=== PATIENT | male | born 2000 | race Caucasian/White ===

== ENCOUNTER 2021-03-01 16:40 | Emergency (ER) | payer BC, SELFPAY ==
[2021-03-01] VITALS (11 sets, daily range): BP systolic 122–155; BP diastolic 73–103; PULSE 100–122; RESP 19–38; TEMP 36.8–36.9; O2SAT 83–98
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
[2021-03-01] MEDS: SODIUM CHLORIDE 0.9% IV 1,000 ML 999 ML IV CONT (17:13)
[2021-03-01] MEDS: methylPREDNISolone SOD SUCC 125 MG VIAL IV PUSH (17:27)
[2021-03-01 17:30] LABS: Basophils Absolute Auto 0.12 K/mm3 (0.00-0.10); Basophils Percent Auto 0.8 % (0.0-1.0); Eosinophils Absolute Auto 0.47 K/mm3 (0.02-0.50); Hematocrit 48.1 % (40.0-54.0); Hemoglobin 16.3 g/dL (14.0-18.0); Immature Granulocyte Absolute 0.12 K/mm3 (0.00-0.00); Immature Granulocyte Percent A 0.8 % (0.0-0.0); Lymphocytes Absolute Auto 3.93 K/mm3 (1.10-4.50); Lymphocytes Percent Auto 24.8 % (18.0-42.0); Mean Corpuscular HGB Conc 33.9 g/dL (32.0-36.0); Mean Corpuscular Hemoglobin 31.3 pg (27.0-31.0); Mean Corpuscular Volume 92.3 fL (78.0-102.0); Mean Platelet Volume 9.6 fl (8.7-11.0); Monocytes Absolute Auto 0.73 K/mm3 (0.10-0.90); Monocytes Percent Auto 4.6 % (2.0-11.0); Neutrophils Absolute Auto 10.5 K/mm3 (1.7-7.2); Platelet Count Result 370 K/mm3 (150-420); Red Blood Count 5.21 M/mm3 (4.70-6.10); Red Cell Distribution Width 11.8 % (11.6-14.4); White Blood Count 15.9 K/mm3 (4.8-10.8)
[2021-03-01 17:34] LABS: Base Excess ABG -4.8 mmol/L (0-2); HCO3 ABG 21.7 mmol/L (23-29); Modified Allen's Test Pass; Oxygen Content ABG 17.9 %vol (16.0-22.0); Oxygen Saturation ABG 90.3 % (95-97); Oxyhemoglobin 87.2 % (94-100); PCO2 ABG 45.2 mmHg (35-45); PO2 ABG 60.1 mmHg (80-90); Site Drawn RIGHT RADIAL; Total Hemoglobin 14.6 g/dL (12.0-18.0)
[2021-03-01 17:35] LABS: Device NON-REBREATHER MASK
[2021-03-01 17:47] LABS: Alanine Aminotransferase 58 U/L (16-63); Albumin Level 3.8 g/dL (3.4-5.0); Alkaline Phosphatase 103 U/L (46-116); Anion Gap 12 mmol/L (8-16); Aspartate Amino Transferase 37 U/L (15-37); Bilirubin,Total 0.3 mg/dL (0.00-1.00); Blood Urea Nitrogen 18 mg/dL (7-18); Calcium 8.5 mg/dL (8.5-10.1); Carbon Dioxide 28 mmol/L (21-32); Chloride 103 mmol/L (98-108); Estimated Glomerular Filt Rate > 60; Glucose 212 mg/dL (70-99); Osmolality Calculated 303 mOsm/kg (285-295); Potassium 3.5 mmol/L (3.5-5.1); Sodium 143 mmol/L (136-145); Total Protein 7.4 g/dL (6.4-8.2); Troponin I 31.7 ng/L (0.00-60.4)
[2021-03-01 17:48] LABS: Ethanol < 3 mg/dL (0-6)
[2021-03-01] MEDS: AZITHROMYCIN 250 MG TABLET 500 MG PO (17:52)
[2021-03-01 17:53] LABS: D Dimer 5.11 mg/L (0.19-0.50)
[2021-03-01 18:04] LABS: SARS-CoV-2 Ag Negative (Negative)
[2021-03-01 18:13] LABS: Lactic Acid Reflex 2.9 mmol/L (0.4-2.0)
--- NOTE | 2021-03-01 19:02 | PC.NURSE ---
Vital signs lost due to monitor cleared when pt was take for CT scan.
--- NOTE | 2021-03-01 19:34 | ECG_ITS ---
Measurements Intervals [place] Rate: 103 P: 49 SC: 155 QRS: 73 QRSD: 85 T: 57 QT: 330 QTc: 433 Interpretive Statements SINUS TACHYCARDIA BORDERLINE ECG Electronically Signed On 03-02-2021 8:09:23 CDT by Fabrice Alberts D.O.
[2021-03-01] MEDS: SODIUM CHLORIDE 0.9% IV 1,000 ML 150 ML IV CONT (19:42)
[2021-03-01] MEDS: SODIUM BICARBONATE 8.4% 50 MEQ/50 ML SYRINGE IV PUSH (19:43)
[2021-03-01] MEDS: ALBUTEROL SULFATE (*SP) INHALER 2 PUFF INHALATION (19:52)
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
[2021-03-01 20:44] LABS: Add Urine Microscopic? NO; Appearance Urine Clear (Clear); Bilirubin Urine Negative (Negative); Blood Urine Negative (Negative); Color Urine Light Yellow (Yellow); Glucose Urine UA Negative (Negative); Ketones Urine Negative (Negative); Leukocyte Esterase Ur Negative (Negative); Nitrate Urine Negative (Negative); Protein Urine Negative (Negative); Urobilinogen Urine 0.2 mg/dL (0.2-1.0)
[2021-03-01 20:52] LABS: Amphetamine Screen Urine Negative (Negative); Barbiturate Screen Urine Negative (Negative); Benzodiazepines Screen Urine Negative (Negative); Cannabinoid Screen Urine Negative (Negative); Cocaine Screen Urine Negative (Negative); Methadone Screen Urine Negative (Negative); Opiate Screen Urine Negative (Negative); Phencyclidine Screen Urine Negative (Negative)
[2021-03-01 20:57] LABS: Reflex Lactic Acid Yes or No Add Lactic
--- NOTE | 2021-03-01 21:26 | PC.NURSE ---
[facility] returned call for pt transfer, Md Barrera accepting pt at [facility].
--- NOTE | 2021-03-01 21:47 | PC.NURSE ---
[facility] charge nurse, Yessi called with a bed for pt, pt going to ICU-1, report to be called to [phone]
--- NOTE | 2021-03-01 21:53 | PC.NURSE ---
report called to staci vidal at [facility].
[2021-03-01] MEDS: ONDANSETRON INJ 4 MG/2 ML VIAL IV PUSH (22:10)
[2021-03-01 22:11] LABS: Base Excess ABG -1.7 mmol/L (0-2); HCO3 ABG 24.1 mmol/L (23-29); Oxygen Content ABG 20.1 %vol (16.0-22.0); Oxyhemoglobin 95.5 % (94-100); PCO2 ABG 44.5 mmHg (35-45); PO2 ABG 93.8 mmHg (80-90); Total Hemoglobin 14.9 g/dL (12.0-18.0); pH ABG 7.35 (7.35-7.45)
[2021-03-01 22:12] LABS: Device NON-REBREATHER MASK; Modified Allen's Test Pass; Site Drawn RIGHT RADIAL
--- NOTE | 2021-03-01 22:32 | PC.NURSE ---
pt out of er with 18g IV left AC and IO right lower leg, no IVF running, documentation provided to EMS, pt parents at bedside at time of pt dischartge
== END 2021-03-01 22:36 | disposition short-term general hospital (02) ==
PROVIDERS: Emergency Provider Emergency Medicine; PCP Nurse Practitioner Family
DX: J18.9 Pneumonia, unspecified organism (principal); R73.9 Hyperglycemia, unspecified; R55 Syncope and collapse; Z20.822 Contact with and (suspected) exposure to COVID-19
CPT/HCPCS: 36415; 36600; 70450; 71250; 71275; 74176; 80053; 80307; 81003; 82805; 83605; 84484; 85025; 85380; 87040; 87426; 93005; 94640; 96361; 96365; 96367; 96375; 99285; A9270; C9803; J0696; J2405; J2543; J2930; J7030; Q9967

== ENCOUNTER 2021-03-01 23:15 | Inpatient (IN) | payer BC, SELFPAY ==
--- NOTE | ~2021-03-01 | XR_ITS ---
EXAMINATION: XR chest 1V portable INDICATION: Worsening tachypnea and shortness of breath TECHNIQUE: Portable AP chest at 2305 hours COMPARISON: CT from yesterday FINDINGS: There are diffuse interstitial and airspace opacities throughout all lung zones which demon strate interval worsening. No pleural effusion or pneumothorax is identified. The cardiomediastinal s ilhouette is normal. IMPRESSION: 1. Diffuse lung disease with interval worsening, consistent with pneumonia and/or pulmonary edema and /or acute respiratory distress syndrome (ARDS). Reviewed, dictated and finalized at location A. IMPRESSION: 1. Diffuse lung disease with interval worsening, consistent with pneumonia and/ or pulmonary edema and/or acute respiratory distress syndrome (ARDS).
--- NOTE | ~2021-03-01 | XR_ITS ---
EXAMINATION: XR chest 1V portable DATE: 03/04/2021 05:49 INDICATION: Aspiration. TECHNIQUE: A single frontal view of the chest was obtained. COMPARISON: Chest single view 03/03/2021, chest CT 03/01/2021 FINDINGS: There are patchy airspace opacities in all lung zones bilaterally with a perihilar predomin ance. No pleural effusion or pneumothorax. The heart size is normal. IMPRESSION: 1. Stable diffuse lung disease, consistent with pneumonia. Reviewed, dictated and finalized at location A.
--- NOTE | ~2021-03-01 | XR_ITS ---
XR chest 1V portable 03/03/2021 14:16 Indication: Pneumonia Procedure: AP portable chest Comparison: 03/02/2021 Findings: Improving extensive bilateral airspace disease, likely improving pneumonia or edema no effu nani or pneumothorax. No acute osseous abnormality.. Impression: 1: Improving extensive bilateral airspace disease which may represent edema or pneumonia. Reviewed, dictated and finalized at location B. Impression: 1: Improving extensive bilateral airspace disease which may represent edema or pneumonia.
[2021-03-01 23:29] VITALS: BMI 29.4
--- NOTE | 2021-03-01 23:46 | ADMGEN ---
This patient, Cristino Garcia, was admitted to Intensive Care Unit-1. Patient/family oriented to hospital policies and general routines including ID bracelet, bed and alarms, visiting hours, pain management, procedures, bathroom and other care routines, personal items, smoking policy, room service/diet, and visiting hours. Information on how to activate the Rapid Response Team has been discussed. Patient/Family are encouraged to report perceived risks to care and to ask questions if they do not understand what they are told or what they should do.
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
[2021-03-02] VITALS (13 sets, daily range): BP systolic 121–141; BP diastolic 41–79; PULSE 60–94; RESP 20–43; TEMP 36.2–37.1; O2SAT 93–100
--- NOTE | 2021-03-02 | ECHO_ITS ---
Patient Info Name: Cristino Garcia Age: 20 years : 2000 Gender: Male Ht: 70 in Wt: 205 lbs BSA: 2.17 m2 HR: 60 bpm BP: 129 / 63 mmHg Heart Rhythm: Sinus Rhythm Exam Date: 03/02/2021 7:52 AM Exam Location: [facility] Patient Status: Inpatient Admit Date: 03/01/2021 Staff Ordering Physician: Ian Goldman MD Centrifugal Extractor Operator: Too Dahl, ZACKERY, RT Attending Provider: Ian Goldman MD Exam Type: CA echo doppler color flow Study Info Indications R06.02 - Shortness of breath Complete two-dimensional, color flow and Doppler transthoracic echocardiogram is performed. Strain analysis performed. Summary 1. Complete two-dimensional, color flow and Doppler transthoracic echocardiogram is performed. 2. Normal left ventricular size and thickness with good systolic function of all segments. Ejection fraction is 60-65% with no segmental wall motion abnormalities. Normal diastolic function. Global longitudinal strain is also normal at -19%. 3. Borderline left atrial enlargement. 4. No significant valve disease. 5. Right ventricular systolic pressure could not be calculated on this study. 6. Normal sinus rhythm. Left Ventricle Left ventricular chamber dimension is normal. Left ventricular systolic function is normal, estimated at 60-65%. There is no increased left ventricular wall thickness. Left ventricular septal wall motion is normal. The left ventricular diastolic function is normal. Global longitudinal strain is normal at 19 %. Right Ventricle Right ventricular chamber dimension is normal. Right ventricular systolic function is normal. Left Atria Left atrial chamber dimension is normal. Right Atria Right atrial chamber dimension is normal. Aortic Valve The aortic valve is trileaflet. There is no aortic valve sclerosis. There is no aortic valve stenosis. There is no aortic valve regurgitation. Pulmonic Valve The pulmonic valve is normal. There is no pulmonic valve stenosis. There is no pulmonic regurgitation. Mitral Valve The mitral valve has normal leaflets. There is no mitral valve stenosis. There is no mitral valve regurgitation. Tricuspid Valve The tricuspid valve leaflets are normal. There is no significant tricuspid valve stenosis. There is trace tricuspid valve regurgitation. No pulmonary hypertension, estimated pulmonary arterial systolic pressure is Empty. Pericardium/Pleural The pericardium appears normal. There is no pericardial effusion. Inferior Vena Cava Normal inferior vena cava with >50% collapse upon inspiration consistent with Empty right atrial pressure, Empty. Aorta The aortic root size at the sinus of Valsalva is normal. The prox ascending aorta size is normal. Left Ventricular Outflow Tract Name Value Normal LVOT 2D LVOT Diameter 2.1 cm LVOT Doppler LVOT Peak Gradient 5 mmHg LVOT Mean Gradient 3 mmHg LVOT VTI 23 cm LVOT VTI/AV VTI Ratio 0.8 LVOT Stroke Volume 75
[2021-03-02 02:09] LABS: Hematocrit 44.1 % (42.0-52.0); Hemoglobin 15.3 g/dL (14.0-18.0); Mean Corpuscular HGB Conc 34.7 g/dl (32-36); Mean Corpuscular Hemoglobin 31.7 pg (26-34); Mean Corpuscular Volume 91.3 fl (80-100); Mean Platelet Volume 9.5 fl (7.4-10.4); Platelet Count Result 301 k/mm3 (150-375); Red Blood Count 4.83 M/mm3 (4.6-6.20); Red Cell Distribution Width 11.7 % (11.5-14.5); White Blood Count 23.9 K/mm3 (4.5-10.0)
[2021-03-02 02:17] LABS: Hemoglobin A1C 5.1 % (<5.7)
[2021-03-02 02:18] LABS: Alanine Aminotransferase 40 U/L (4-50); Albumin Level 4.3 g/dL (3.5-5.1); Alkaline Phosphatase 59 U/L (38-126); Anion Gap 5 mmol/L (8-16); Aspartate Amino Transferase 36 U/L (17-59); Bilirubin,Total 0.6 mg/dL (0.2-1.3); Blood Urea Nitrogen 15 mg/dL (9-20); Calcium 9.3 mg/dL (8.4-10.2); Carbon Dioxide 26 mmol/L (22-30); Chloride 106 mmol/L (98-107); Estimated CRCL calculation 147 ml/min; Estimated Glomerular Filt Rate > 60; Glucose 147 mg/dL (65-110); Lactic Acid Reflex 1.1 mmol/L (0.7-2.1); Magnesium 1.8 mg/dL (1.6-2.3); Potassium 4.8 mmol/L (3.4-5.0); Sodium 137 mmol/L (137-145)
[2021-03-02 02:27] LABS: NT Pro B Type Natriuretic Pept 95 pg/mL (5-100)
[2021-03-02] MEDS: SODIUM CHLORIDE 0.9% IV 1,000 ML 100 ML IV CONT ×3 (02:43→20:58)
[2021-03-02 03:17] LABS: Band Neutrophils Percent 10 % (0-6); Lymphocytes Absolute Manual 0.47 K/mm3 (1.1-4.5); Monocytes Absolute Manual 0.71 K/mm3 (0.1-0.90); Monocytes Percent Manual 3 % (3-9); Neutrophils Percent Manual 85 % (46-73); Platelet Estimate Adequate (Adequate); Total Cells Counted 100
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
[2021-03-02 10:01] LABS: Lipase 14 U/L (23-300)
[2021-03-02] MEDS: PANTOPRAZOLE 40 MG TABLET PO ×2 (10:16→20:56)
--- NOTE | 2021-03-02 13:25 | WPDGICN ---
Assessment and Plan Assessment and plan (1) Abdominal pain: Code(s): R10.9 - Unspecified abdominal pain Status: Acute Assessment and Plan: this pain is chronic and varies in intensity. Because he uses quite a bit of ibuprofen he may have ulcers, particularly in view of his history of ulcer disease 5 years ago I will schedule him tentatively for EGD to be done tomorrow. I would hope that we may have the COVID test back by then (2) Throat pain: Code(s): R07.0 - Pain in throat Status: Acute Assessment and Plan: I do not think he is describing reflux esophagitis symptoms. Sounds more like pharyngitis (3) Peptic ulcer disease: Code(s): K27.9 - Peptic ulcer, site unspecified, unspecified as acute or chronic, without hemorrhage or perforation Status: Acute Assessment and Plan: He has a past history of this. He recalls being treated for month or 2 with something but he cannot recall the name of the medication (4) Acute respiratory failure with hypoxia: Code(s): J96.01 - Acute respiratory failure with hypoxia Status: Acute Assessment and Plan: currently being treated with antibiotics for community-acquired pneumonia which may be actually COVID. We are awaiting the final test results GI Consult Note Consult date/time: 03/02/21 13:25 HPI: Cristino Garcia is a 20 year old male was admitted yesterday with suspicion of sepsis and a diagnosis of pneumonia. CT scan shows bilateral pneumonia with ground-glass opacities throughout both lungs. He had a CTA which was negative for pulmonary embolism. He is currently on Zosyn and azithromycin. A COVID antigen test was negative. He is being double checked with the COVID PCR test which is pending. [place] to see him because he has a history of peptic ulcer disease and has complained of epigastric pain. He states that he has this on and off chronically. He states that there is no pattern to this pain. At times the pain is in the epigastric area. Lately he has had pain in his back. He also gets a pain in the lower chest just to the right of center and that feels as though there are bubbles in his chest which will go away after a while but are very painful when present. He states that today his stomach is not bothering him as much as his throat. He he has had a sore throat on and off for quite a while but is much worse in the last 24 hours. He states he does not have difficulty swallowing food. His weight is stable. He gets occasionally nauseated but has had no vomiting. He does drink alcohol regularly but not every day. He states he uses ibuprofen frequently for headaches. At most he will take 3 or 4 in 1 day. Review of Systems Review of Systems: All systems reviewed & are unremarkable except as noted in HPI and below [facility] Past Medical History Medical History Cigarette nicotine dependence Hyperglycemia Pneumonia Surgical History Surgical History No history of previous surgery Social History Social History Smoking packs per day: 1 Smoking cigarettes per day: 20.0 Years smoked: 5 Smoking pack-years: 5.00 Smoking status: Current every day smoker Tobacco type: cigarettes Smokeless tobacco user: chewing tobacco Alcohol intake: current Additional occupation/education comments: [employer] care concerns: No Meds Home Medications and Allergies Home Medications Medication Instructions Recorded Confirmed Type amoxicillin 875 mg-potassium 1 tablet PO BID 10 Days #20 tablet 02/22/21 03/01/21 Rx clavulanate 125 mg tablet Allergies Allergy/AdvReac Type Severity Reaction Status Date / Time No Known Allergies Allergy Verified 03/01/21 20:42 Vital Signs Vital Signs - 24 hr 03/02/21 00:00
[2021-03-02] MEDS: MAG HYDROX/AL HYDROX/SIMETH 30 ML UDC PO (16:02)
[2021-03-02 16:53] LABS: SARS-CoV-2 RNA PCR Negative (Negative)
[2021-03-02] MEDS: BENZONATATE 100 MG CAPSULE 200 MG PO (23:30)
[2021-03-03] VITALS (14 sets, daily range): BP systolic 109–132; BP diastolic 58–81; PULSE 67–104; RESP 25–41; TEMP 36.4–37.4; O2SAT 90–99
[2021-03-03 04:38] LABS: Hematocrit 38.9 % (42.0-52.0); Hemoglobin 13.5 g/dL (14.0-18.0); Mean Corpuscular HGB Conc 34.7 g/dl (32-36); Mean Corpuscular Hemoglobin 32.2 pg (26-34); Mean Corpuscular Volume 92.8 fl (80-100); Mean Platelet Volume 9.4 fl (7.4-10.4); Platelet Count Result 211 k/mm3 (150-375); Red Blood Count 4.19 M/mm3 (4.6-6.20); White Blood Count 13.3 K/mm3 (4.5-10.0)
[2021-03-03 04:59] LABS: Alanine Aminotransferase 28 U/L (4-50); Albumin Level 3.5 g/dL (3.5-5.1); Alkaline Phosphatase 45 U/L (38-126); Anion Gap 2 mmol/L (8-16); Aspartate Amino Transferase 26 U/L (17-59); Bilirubin,Total 0.7 mg/dL (0.2-1.3); Blood Urea Nitrogen 9 mg/dL (9-20); Calcium 8.5 mg/dL (8.4-10.2); Carbon Dioxide 32 mmol/L (22-30); Chloride 103 mmol/L (98-107); Estimated CRCL calculation 130 ml/min; Estimated Glomerular Filt Rate > 60; Glucose 123 mg/dL (65-110); Magnesium 1.8 mg/dL (1.6-2.3); Potassium 3.6 mmol/L (3.4-5.0); Sodium 137 mmol/L (137-145)
[2021-03-03] MEDS: PANTOPRAZOLE 40 MG TABLET PO ×2 (08:44→21:10)
[2021-03-03] MEDS: BENZONATATE 100 MG CAPSULE 200 MG PO ×3 (08:44→17:57)
--- NOTE | 2021-03-03 10:08 | PC.NURSE ---
Patient to gi lab, with gi staff.
[2021-03-03] MEDS: LACTATED RINGERS 1,000 ML 150 ML IV CONT (10:16)
--- NOTE | 2021-03-03 11:08 | WPDANESEPPF ---
Anes - Initial Pre Proc Eval Procedure: Operation Date: 03/03/21 13:45 Proposed Procedures p Esophagogastroduodenoscopy - Lionel Parish MD Date/Time: 03/03/21 11:08 Surgeon: Ian Goldman MD Pre Op Diagnosis: Pneumonia/hypoxia Patient Data Age: 20 Gender: M Height: 1.78 m Weight: 92.2 kg Last Vital Signs Temp 97.6 F 03/03/21 10:17 Pulse 84 03/03/21 10:17 Resp 36 H 03/03/21 10:17 BP 118/78 03/03/21 10:17 Pulse Ox 96 03/03/21 10:17 Allergies Allergy/AdvReac Type Severity Reaction Status Date / Time No Known Allergies Allergy Verified 03/03/21 10:12 Home Medications Medication Instructions Recorded Confirmed Type amoxicillin 875 mg-potassium 1 tablet PO BID 10 Days #20 tablet 02/22/21 03/01/21 Rx clavulanate 125 mg tablet Laboratory Tests 03/02/21 03/03/21 03/03/21 09:36 04:32 04:32 WBC 13.3 K/mm3 H K/mm3 (4.5-10.0) RBC 4.19 M/mm3 L M/mm3 (4.6-6.20) Hgb 13.5 g/dL L g/dL (14.0-18.0) Hct 38.9 % L % (42.0-52.0) MCV 92.8 fl fl (80-100) MCH 32.2 pg pg (26-34) MCHC 34.7 g/dl g/dl (32-36) RDW 12.0 % % (11.5-14.5) Plt Count 211 k/mm3 k/mm3 (150-375) MPV 9.4 fl fl (7.4-10.4) Sodium 137 mmol/L mmol/L (137-145) Potassium 3.6 mmol/L mmol/L (3.4-5.0) Chloride 103 mmol/L mmol/L (98-107) Carbon Dioxide 32 mmol/L H mmol/L (22-30) Anion Gap 2 mmol/L L mmol/L (8-16) BUN 9 mg/dL D mg/dL (9-20) Creatinine 0.80 mg/dL mg/dL (0.7-1.3) Estim Creat Clear Calc 130 ml/min ml/min Estimated GFR > 60 (59 - ) Glucose 123 mg/dL H mg/dL (65-110) Calcium 8.5 mg/dL mg/dL (8.4-10.2) Magnesium 1.8 mg/dL mg/dL (1.6-2.3) Total Bilirubin 0.7 mg/dL mg/dL (0.2-1.3) AST 26 U/L U/L (17-59) ALT 28 U/L U/L (4-50) Alkaline Phosphatase 45 U/L U/L (38-126) Total Protein 6.0 g/dL L g/dL (6.3-8.2) Albumin 3.5 g/dL g/dL (3.5-5.1) SARS-CoV-2 RNA (RT-PCR) Negative (Negative) Patient hx anesthesia problems: none Family hx anesthesia problems: none Results Review: All pre-operative results and documents have been reviewed as part of the pre-operative evaluation. [facility] Past Medical History Medical History Cigarette nicotine dependence Hyperglycemia Pneumonia Surgical History Surgical History No history of previous surgery Social History Social History Smoking packs per day: 1 Smoking cigarettes per day: 20.0 Years smoked: 5 Smoking pack-years: 5.00 Smoking status: Current every day smoker Tobacco type: cigarettes Smokeless tobacco user: chewing tobacco Alcohol intake: current Additional occupation/education comments: On License [employer] Spiritual care concerns: No Anes - Eval Final PreProcedure Day of Procedure 03/03/21 11:08 Patient weight: overweight Heart: regular rate and rhythm Lungs: clear to auscultation Airway: Mallampati scale class II Neurological: alert and oriented Last oral intake: >/= 8 hours ASA classification: III Emergent: no Anesthetic plan: proceed Anesthesia type and monitoring: general GIVS and standard monitoring Results Review: All pre-operative results and documents have been reviewed as part of the pre-operative evaluation. Informed Consent: The patient's anesthetic plan and its attendant risks and benefits were discussed with the patient/family/POA. Questions were solicited and answers provided to the satisfaction of the patient/family/POA.
[2021-03-03] MEDS: FUROSEMIDE INJ 40 MG/4 ML VIAL IV PUSH (13:01)
--- NOTE | 2021-03-03 13:15 | PC.NURSE ---
Patient returned to room with GI lab staff. No complaints of shortness of breath at this time, oriented x4. Patient on 4L nasal cannula.
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
[2021-03-04] VITALS (7 sets, daily range): BP systolic 106–139; BP diastolic 28–68; PULSE 80–101; RESP 18–28; TEMP 36.3–37.2; O2SAT 90–98
[2021-03-04 04:49] LABS: Hematocrit 40.9 % (42.0-52.0); Hemoglobin 14.5 g/dL (14.0-18.0); Mean Corpuscular HGB Conc 35.5 g/dl (32-36); Mean Corpuscular Hemoglobin 32.7 pg (26-34); Mean Corpuscular Volume 92.1 fl (80-100); Mean Platelet Volume 9.4 fl (7.4-10.4); Platelet Count Result 248 k/mm3 (150-375); Red Blood Count 4.44 M/mm3 (4.6-6.20); Red Cell Distribution Width 11.8 % (11.5-14.5)
[2021-03-04 05:05] LABS: Alanine Aminotransferase 27 U/L (4-50); Alkaline Phosphatase 54 U/L (38-126); Anion Gap 9 mmol/L (8-16); Aspartate Amino Transferase 20 U/L (17-59); Bilirubin,Total 1.1 mg/dL (0.2-1.3); Blood Urea Nitrogen 11 mg/dL (9-20); Calcium 9.1 mg/dL (8.4-10.2); Carbon Dioxide 27 mmol/L (22-30); Chloride 104 mmol/L (98-107); Estimated CRCL calculation 147 ml/min; Estimated Glomerular Filt Rate > 60; Glucose 96 mg/dL (65-110); Potassium 3.6 mmol/L (3.4-5.0); Sodium 140 mmol/L (137-145)
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
[2021-03-04] MEDS: BENZONATATE 100 MG CAPSULE 200 MG PO ×3 (07:50→16:50)
[2021-03-04] MEDS: PANTOPRAZOLE 40 MG TABLET PO ×2 (07:51→21:03)
--- NOTE | 2021-03-04 10:26 | WPDANESPN ---
Anes - Prog Note Post-Op Date/Time: 03/04/21 10:26 Cardiovascular status: normal Respiratory status: normal Airway patency: baseline Mental status: baseline Post-Op hydration status: normal Vital Signs: Last Vital Signs Temp 37.0 C 03/04/21 08:00 Pulse 81 03/04/21 08:00 Resp 28 H 03/04/21 08:00 BP 132/66 03/04/21 08:00 Pulse Ox 90 03/04/21 08:00 Pain Score (VAS): 0 I/O: Intake & Output 03/03/21 03/04/21 03/04/21 23:59 07:59 15:59 Intake Total 1750 850 100 Output Total 3600 650 Balance -1850 200 100 Laboratory Tests 03/04/21 04:44 03/04/21 04:44 03/03/21 03/03/21 03/03/21 16:11 16:13 16:13 WBC RBC Hgb Hct MCV MCH MCHC RDW Plt Count MPV Sodium Potassium Chloride Carbon Dioxide Anion Gap BUN Creatinine Estim Creat Clear Calc Estimated GFR Glucose Calcium Magnesium Total Bilirubin AST ALT Alkaline Phosphatase Total Protein Albumin Rheumatoid Factor 14.0 Rheumatoid Factor Scrn Cancelled Rheumatoid Factor Titer Cancelled Anti-Cycl Citrul Peptide SETH Scrn Qualitative Pending SETH [place] Interp Pending ANCA Screen Pending 03/03/21 03/04/21 03/04/21 16:13 04:44 04:44 WBC 11.0 H RBC 4.44 L Hgb 14.5 Hct 40.9 L MCV 92.1 MCH 32.7 MCHC 35.5 RDW 11.8 Plt Count 248 MPV 9.4 Sodium 140 Potassium 3.6 Chloride 104 Carbon Dioxide 27 Anion Gap 9 BUN 11 Creatinine 0.70 Estim Creat Clear Calc 147 Estimated GFR > 60 Glucose 96 Calcium 9.1 Magnesium 2.0 Total Bilirubin 1.1 AST 20 ALT 27 Alkaline Phosphatase 54 Total Protein 7.0 Albumin 4.0 Rheumatoid Factor Rheumatoid Factor Scrn Rheumatoid Factor Titer Anti-Cycl Citrul Peptide Pending SETH Scrn Qualitative SETH [place] Interp ANCA Screen Post-procedural complaints: none Patient Feedback: Patient satisfied with anesthetic care.
--- NOTE | 2021-03-04 12:14 | PC.NURSE ---
This patient, Cristino Garcia, was transferred to [[id number]] on 03/04/21 at 1215. Personal belongings sent with patient. Report given to [Sharon MICHAEL]. Appropriate documentation sent with patient.
--- NOTE | 2021-03-04 12:37 | PC.NURSE ---
This patient, Cristino Garcia, was received from ICU on 03/04/21 at 1238. Patient/family oriented to unit policies and routines
--- NOTE | 2021-03-04 14:18 | PM.IMPN ---
Progress Note: A&P Assessment and Plan (1) Sepsis: Code(s): A41.9 - Sepsis, unspecified organism Status: Acute Assessment and Plan: Likely secondary to aspiration pneumonia Initial lactic acid was 2.9 which normalized after IV fluids Patient has not required any vasopressor Blood cultures with no growth so far Empiric Zosyn vancomycin and azithromycin. I will stop azithromycin as his clinical presentation is not suggestive of atypical pneumonia. (2) Acute respiratory failure with hypoxia: Code(s): J96.01 - Acute respiratory failure with hypoxia Status: Acute Assessment and Plan: Secondary to pneumonia He was requiring 15 L of oxygen with non-rebreather mask at one point. He was down to 5 L of oxygen through nasal cannula today. Continue supplemental oxygen and continue to wean oxygen if tolerated. Keep oxygen saturation above 90%. Incentive spirometry Encourage activity. Out of bed to chair. PT OT follow-up. (3) Pneumonia: Qualifiers: Laterality: bilateral Lung location: unspecified part of lung Pneumonia type: due to unspecified organism Qualified Code(s): J18.9 - Pneumonia, unspecified organism Code(s): J18.9 - Pneumonia, unspecified organism Status: Acute Assessment and Plan: Community-acquired pneumonia versus aspiration as history is not fully clear. Likely aspiration in nature considering his presentation. Patient is currently on Zosyn vancomycin and azithromycin. I will stop azithromycin as unlikely an atypical pneumonia. Follow blood culture. Rapid flu and strep was negative COVID rapid antigen and PCR is found to be negative. mycoplasma IgM and IgG are pending Legionella and strep urine antigen is pending Check MRSA screen and if negative then can discontinue vancomycin. Deescalate antibiotics further based on further clinical data. Pulmonary service recommendations appreciated vasculitis panel including SETH, Anca profile, RA factor and anti CCP has been sent and pending. Are affected his minimally elevated. Still have some occasional dark blood with a cough but no clari hemoptysis. Repeat chest x-ray in 2 days time. He will need to have outpatient thoracic imaging in 4-6 weeks for documenting resolution of the bilateral infiltrate. (4) Cigarette nicotine dependence: Code(s): F17.210 - Nicotine dependence, cigarettes, uncomplicated Status: Chronic Assessment and Plan: Patient was counseled to quit tobacco (5) Abdominal pain: Code(s): R10.9 - Unspecified abdominal pain Status: Acute Assessment and Plan: Patient has history of peptic ulcer disease which he states was diagnosed many years ago. He complains of abdominal pain and heartburn which is chronic for many years Denies any evidence of GI bleeding Continue pantoprazole and p.r.n. Mylanta/times. Gastroenterology service has been consulted who recommended an upper GI endoscopy which was done yesterday which showed GERD with no evidence of peptic ulcer disease. LFTs unremarkable (6) GERD (gastroesophageal reflux disease): Code(s): K21.9 - Gastro-esophageal reflux disease without esophagitis Status: Acute Assessment and Plan: See above (7) Peptic ulcer disease: Code(s): K27.9 - Peptic ulcer, site unspecified, unspecified as acute or chronic, without hemorrhage or perforation Status: Acute Assessment and Plan: See above (8) Altered mental status: Code(s): R41.82 - Altered mental status, unspecified Status: Acute Assessment and Plan: Unknown etiology at this time. Patient's UDS was negative His ETOH level was negative He denies any other drug use although he responded to Narcan in the field He is now alert oriented x3 and nonfocal ? Syncope from hypoxia or coughing EKG shows normal sinus rhythm with normal [place] and QTC Echo showed ejection fraction of 60-65%. No significant valvular disease
[2021-03-04 14:44] LABS: Vancomycin Trough < 5.0 ug/mL (10.0-20.0)
[2021-03-04 17:52] LABS: Pneumococcal Antigen Urine Not Detected (Not Detected)
[2021-03-05] VITALS (7 sets, daily range): BP systolic 116–139; BP diastolic 64–70; PULSE 69–99; RESP 14–18; TEMP 36.2–36.7; O2SAT 94–97
[2021-03-05 05:40] LABS: Basophils Absolute Auto 0.1 K/mm3 (0.0-0.1); Basophils Percent Auto 0.9 % (0.2-1.2); Eosinophils Absolute Auto 0.7 K/mm3 (0-0.3); Eosinophils Percent Auto 6.7 % (0-4.4); Hematocrit 40.1 % (42.0-52.0); Hemoglobin 13.9 g/dL (14.0-18.0); Immature Granulocyte Absolute 0.05 K/mm3 (0.00-0.031); Immature Granulocyte Percent A 0.5 % (0-0.5); Lymphocytes Absolute Auto 1.82 K/mm3 (0.9-3.2); Lymphocytes Percent Auto 18.6 % (18.3-44.2); Mean Corpuscular HGB Conc 34.7 g/dl (32-36); Mean Corpuscular Hemoglobin 31.7 pg (26-34); Mean Corpuscular Volume 91.6 fl (80-100); Mean Platelet Volume 9.7 fl (7.4-10.4); Monocytes Absolute Auto 0.6 K/mm3 (0.1-0.6); Neutrophils Absolute Auto 6.6 K/mm3 (1.3-6.7); Neutrophils Percent Auto 67.3 % (45.5-73.1); Platelet Count Result 272 k/mm3 (150-375); Red Blood Count 4.38 M/mm3 (4.6-6.20); Red Cell Distribution Width 11.6 % (11.5-14.5); White Blood Count 9.8 K/mm3 (4.5-10.0)
[2021-03-05 06:03] LABS: Anion Gap 8 mmol/L (8-16); Blood Urea Nitrogen 9 mg/dL (9-20); Calcium 9.1 mg/dL (8.4-10.2); Carbon Dioxide 26 mmol/L (22-30); Chloride 105 mmol/L (98-107); Estimated CRCL calculation 130 ml/min; Estimated Glomerular Filt Rate > 60; Glucose 120 mg/dL (65-110); Potassium 3.4 mmol/L (3.4-5.0); Sodium 139 mmol/L (137-145)
[2021-03-05] MEDS: PANTOPRAZOLE 40 MG TABLET PO (08:58)
[2021-03-05] MEDS: BENZONATATE 100 MG CAPSULE 200 MG PO ×2 (08:58→12:10)
--- NOTE | 2021-03-05 09:02 | PM.IMPN ---
Subjective Date/time seen: 03/05/21 09:02 Objective Data Vital Signs Vital Signs: Vital Signs - 24 hr 03/04/21 12:00 03/04/21 16:00 03/04/21 20:00 Temperature 98.6 F 98.5 F 98.8 F Pulse Rate 99 100 101 H Respiratory Rate 20 20 18 Blood Pressure 106/64 110/64 139/68 Pulse Oximetry 91 92 98 03/05/21 01:30 03/05/21 04:00 03/05/21 05:03 Temperature 97.6 F Pulse Rate 79 79 79 Respiratory Rate 16 14 Blood Pressure 116/64 Pulse Oximetry 94 94 Intake/Output Intake/Output: Intake & Output 03/02/21 03/03/21 03/04/21 03/05/21 23:59 23:59 23:59 23:59 Intake Total 4090 4120 2660 1100 Output Total 2800 4800 650 Balance 1290 -680 2010 1100 Meds/Results Medications: Active Medications Generic Name Dose Route Start Last Admin Trade Name Freq PRN Reason Stop Dose Admin Acetaminophen 650 mg 03/02/21 01:30 Acetaminophen 325 Mg Tablet PO Q4H PRN Mild Pain (1-3) or Fever Acetaminophen/Codeine Phosphate 10 ml 03/03/21 00:59 Acetaminophen/Codeine Elixir (*Crx) 120-12 Mg/5 Ml Udc PO Q4H PRN Pain Rated 4-6 Al Hydrox/Mg Hydrox/Simethicone 30 ml 03/02/21 08:23 03/02/21 16:02 Mag Hydrox/Al Hydrox/Simeth 30 Ml Udc PO 30 ml Q6H PRN Administration Indigestion Benzonatate 200 mg 03/02/21 22:55 03/05/21 08:58 Benzonatate 100 Mg Capsule PO 200 mg TID ROSA MARIA Administration Calcium Carbonate 200 mg 03/02/21 08:20 Calcium Carbonate (Tums) 500 Mg (200 Mg Elemental) PO Q6H PRN Indigestion Piperacillin Sod/Tazobactam 100 mls @ 200 mls/hr 03/03/21 16:00 03/05/21 08:59 Sod 4.5 gm/ Dextrose IVPB 200 mls/hr Q6H ROSA MARIA Administration Vancomycin HCl 2,000 mg in 500 mls @ 250 mls/hr 03/04/21 15:00 03/05/21 07:00 Vancomycin 2,000 Mg/D5w 500 Ml IVPB Infused Q12H ROSA MARIA Infusion Pantoprazole Sodium 40 mg 03/02/21 09:00 03/05/21 08:58 Pantoprazole 40 Mg Tablet PO 40 mg Q12HR ROSA MARIA Administration Radiology Results: ITS Impressions Chest X-Ray 03/04/21 06:28 IMPRESSION: 1. Stable diffuse lung disease, consistent with pneumonia. Labs Labs: Laboratory Results - last 24 hr 03/02/21 03/04/21 03/05/21 09:36 13:18 04:52 WBC 9.8 RBC 4.38 L Hgb 13.9 L Hct 40.1 L MCV 91.6 MCH 31.7 MCHC 34.7 RDW 11.6 Plt Count 272 MPV 9.7 Immature Gran % (Auto) 0.5 Neut % (Auto) 67.3 Lymph % (Auto) 18.6 [place] % (Auto) 6.0 Eos % (Auto) 6.7 H Baso % (Auto) 0.9 Lymph # (Auto) 1.82 [place] # (Auto) 0.6 Eos # (Auto) 0.7 H Baso # (Auto) 0.1 Abs Immat Gran (auto) 0.05 H Absolute Neuts (auto) 6.6 Absolute Nucleated RBC 0.0 Nucleated RBC % 0.0 Sodium Potassium Chloride Carbon Dioxide Anion Gap BUN Creatinine Estim Creat Clear Calc Estimated GFR Glucose Calcium Vancomycin Trough < 5.0 L Urine Pneumococcal Ag Not detected 03/05/21 04:53 WBC RBC Hgb Hct MCV MCH MCHC RDW Plt Count MPV Immature Gran % (Auto) Neut % (Auto) Lymph % (Auto) [place] % (Auto) Eos % (Auto) Baso % (Auto) Lymph # (Auto) [place] # (Auto) Eos # (Auto) Baso # (Auto) Abs Immat Gran (auto) Absolute Neuts (auto) Absolute Nucleated RBC Nucleated RBC % Sodium 139 Potassium 3.4 Chloride 105 Carbon Dioxide 26 Anion Gap 8 BUN 9 Creatinine 0.80 Estim Creat Clear Calc 130 Estimated GFR > 60 Glucose 120 H Calcium 9.1 Vancomycin Trough Urine Pneumococcal Ag
[2021-03-05 09:15] LABS: Legionella pneumophila Ag Ur Not Detected (Not Detected)
--- NOTE | 2021-03-05 15:22 | PM.IMPN ---
Subjective Date/time seen: 03/05/21 15:22 Objective Data Vital Signs Vital Signs: Vital Signs - 24 hr 03/04/21 16:00 03/04/21 20:00 03/05/21 01:30 Temperature 98.5 F 98.8 F Pulse Rate 100 101 H 79 Respiratory Rate 20 18 16 Blood Pressure 110/64 139/68 Pulse Oximetry 92 98 94 03/05/21 04:00 03/05/21 05:03 03/05/21 08:00 Temperature 97.6 F 97.1 F L Pulse Rate 79 79 69 Respiratory Rate 14 16 Blood Pressure 116/64 139/66 Pulse Oximetry 94 95 03/05/21 08:56 03/05/21 12:00 Temperature Pulse Rate 76 Respiratory Rate Blood Pressure Pulse Oximetry 94 Intake/Output Intake/Output: Intake & Output 03/02/21 03/03/21 03/04/21 03/05/21 23:59 23:59 23:59 23:59 Intake Total 4090 4120 2660 1440 Output Total 2800 4800 650 Balance 1290 -680 2010 1440 Meds/Results Medications: Active Medications Generic Name Dose Route Start Last Admin Trade Name Freq PRN Reason Stop Dose Admin Acetaminophen 650 mg 03/02/21 01:30 Acetaminophen 325 Mg Tablet PO Q4H PRN Mild Pain (1-3) or Fever Acetaminophen/Codeine Phosphate 10 ml 03/03/21 00:59 Acetaminophen/Codeine Elixir (*Crx) 120-12 Mg/5 Ml Udc PO Q4H PRN Pain Rated 4-6 Al Hydrox/Mg Hydrox/Simethicone 30 ml 03/02/21 08:23 03/02/21 16:02 Mag Hydrox/Al Hydrox/Simeth 30 Ml Udc PO 30 ml Q6H PRN Administration Indigestion Benzonatate 200 mg 03/02/21 22:55 03/05/21 12:10 Benzonatate 100 Mg Capsule PO 200 mg TID ROSA MARIA Administration Calcium Carbonate 200 mg 03/02/21 08:20 Calcium Carbonate (Tums) 500 Mg (200 Mg Elemental) PO Q6H PRN Indigestion Piperacillin Sod/Tazobactam 100 mls @ 200 mls/hr 03/03/21 16:00 03/05/21 09:54 Sod 4.5 gm/ Dextrose IVPB Infused Q6H ROSA MARIA Infusion Vancomycin HCl 2,000 mg in 500 mls @ 250 mls/hr 03/04/21 15:00 03/05/21 14:30 Vancomycin 2,000 Mg/D5w 500 Ml IVPB 200 mls/hr Q12H ROSA MARIA Administration Pantoprazole Sodium 40 mg 03/02/21 09:00 03/05/21 08:58 Pantoprazole 40 Mg Tablet PO 40 mg Q12HR ROSA MARIA Administration Radiology Results: ITS Impressions Chest X-Ray 03/04/21 06:28 IMPRESSION: 1. Stable diffuse lung disease, consistent with pneumonia. Labs Labs: Laboratory Results - last 24 hr 03/02/21 03/05/21 03/05/21 09:36 04:52 04:53 WBC 9.8 RBC 4.38 L Hgb 13.9 L Hct 40.1 L MCV 91.6 MCH 31.7 MCHC 34.7 RDW 11.6 Plt Count 272 MPV 9.7 Immature Gran % (Auto) 0.5 Neut % (Auto) 67.3 Lymph % (Auto) 18.6 [place] % (Auto) 6.0 Eos % (Auto) 6.7 H Baso % (Auto) 0.9 Lymph # (Auto) 1.82 [place] # (Auto) 0.6 Eos # (Auto) 0.7 H Baso # (Auto) 0.1 Abs Immat Gran (auto) 0.05 H Absolute Neuts (auto) 6.6 Absolute Nucleated RBC 0.0 Nucleated RBC % 0.0 Sodium 139 Potassium 3.4 Chloride 105 Carbon Dioxide 26 Anion Gap 8 BUN 9 Creatinine 0.80 Estim Creat Clear Calc 130 Estimated GFR > 60 Glucose 120 H Calcium 9.1 Ur L.pneumophila Ag Not detected Urine Pneumococcal Ag Not detected
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
[2021-03-06 08:55] LABS: Mycoplasma IgM Antibody Titer 100 U/mL (<770)
[2021-03-06 10:56] LABS: Anti Cyclic Citrullinated Pept <16 Units (<20)
[2021-03-08 10:40] LABS: ANCA Screen Negative (Negative)
[2021-03-08 12:33] LABS: ANA Cascade Screen Negative (Negative)
== END 2021-03-05 17:15 | disposition home or self-care (01) | DRG 720 ==
LOC: ANHICU 03-04 08:04 → ANH2MED 03-05 15:59 → ANHICU 03-08 15:49
PROVIDERS: Internal Medicine; Internal Medicine Critical Care Medicine; Internal Medicine Gastroenterology; Internal Medicine Pulmonary Disease; Admitting Provider Internal Medicine; PCP Nurse Practitioner Family; Visit Provider Internal Medicine
PROC: 0DJ08ZZ Inspection of Upper Intestinal Tract, Via Natural or Artificial Opening Endoscopic (ICD-10-PCS; CPT 43235; principal; 2021-03-03 13:45)
DX: A41.9 Sepsis, unspecified organism (principal); J18.9 Pneumonia, unspecified organism; J69.0 Pneumonitis due to inhalation of food and vomit; R04.2 Hemoptysis; J96.01 Acute respiratory failure with hypoxia; E87.2 Acidosis; F41.8 Other specified anxiety disorders; Z20.822 Contact with and (suspected) exposure to COVID-19; R73.9 Hyperglycemia, unspecified; K21.9 Gastro-esophageal reflux disease without esophagitis; J02.9 Acute pharyngitis, unspecified; F17.210 Nicotine dependence, cigarettes, uncomplicated; V89.2XXA Person injured in unspecified motor-vehicle accident, traffic, initial encounter; Z87.11 Personal history of peptic ulcer disease
CPT/HCPCS: 36415; 71045; 80048; 80053; 80202; 83036; 83605; 83690; 83735; 83880; 84145; 85025; 85027; 86021; 86038; 86200; 86430; 86738; 87040; 87081; 87449; 87899; 93306; A9270; C9803; J0456; J1940; J2543; J2704; J3370; J7030; J7120; U0003; U0005

== ENCOUNTER 2021-04-11 15:46 | Outpatient (CLI) | payer BC, SELFPAY ==
--- NOTE | ~2021-04-11 | XR_ITS ---
EXAMINATION: XR chest 2V 04/11/2021 16:01 INDICATION: Follow-up pneumonia PROCEDURE: 2 view chest COMPARISON: 03/04/2021 FINDINGS: The lungs are clear. Interval resolution of extensive bilateral airspace disease. The cardi omediastinal silhouette is within normal limits. There are no pleural effusions. There is no pneumo thorax suspected. IMPRESSION: 1: NO ACUTE CARDIOPULMONARY DISEASE. Reviewed, dictated and finalized at location B. EY OPERATOR
== END 2021-04-11 15:47 | disposition home or self-care (01) ==
LOC: CHSIMG 15:48
PROVIDERS: PCP Nurse Practitioner Family; Visit Provider Nurse Practitioner Family
DX: J18.9 Pneumonia, unspecified organism (principal)
CPT/HCPCS: 71046

== ENCOUNTER 2024-02-07 19:09 | Emergency (ER) | payer OTHER, SELFPAY ==
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
[2024-02-07 19:09] VITALS: BP 160/87; PULSE 83; RESP 16; TEMP 36.9; O2SAT 97
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
[2024-02-07] MEDS: TETANUS,DIPHTHERIA,AC PERTUSSIS ADULT 0.5 ML (ADACEL) IM (19:59)
[2024-02-07] MEDS: NEOMYCIN/POLYMYXIN/BACITRACIN OINTMENT PACKET 1 PACKET TOPICAL (20:00)
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
[2024-02-07 20:20] VITALS: BP 135/85; PULSE 83; RESP 16; TEMP 36.9; O2SAT 98
== END 2024-02-07 20:20 | disposition home or self-care (01) ==
PROVIDERS: Emergency Provider Emergency Medicine; PCP Nurse Practitioner Family
DX: S06.0X0A Concussion without loss of consciousness, initial encounter (principal); S01.112A Laceration without foreign body of left eyelid and periocular area, initial encounter; F17.210 Nicotine dependence, cigarettes, uncomplicated; Z23 Encounter for immunization; Y04.0XXA Assault by unarmed brawl or fight, initial encounter; Y92.59 Other trade areas as the place of occurrence of the external cause
CPT/HCPCS: 70450; 70486; 90471; 90715; 99284

== ENCOUNTER 2024-06-17 18:24 | Emergency (ER) | payer OTHER, SELFPAY ==
[2024-06-17 18:24] VITALS: BP 132/97; PULSE 113; RESP 18; TEMP 38.6; O2SAT 97
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
[2024-06-17] MEDS: ACETAMINOPHEN 500 MG TABLET 1000 MG PO (18:32)
[2024-06-17 19:02] VITALS: TEMP 39.6
[2024-06-17 19:18] LABS: Influenza A QL RT-PCR Positive (Negative); Influenza B QL RT-PCR Negative (Negative); SARS-CoV-2 RNA PCR Negative (Negative)
[2024-06-17 19:19] LABS: RSV RNA, RT-PCR Negative (Negative)
[2024-06-17 19:47] LABS: Strep Group A RT-PCR NOT DETECTED (Negative)
[2024-06-17] MEDS: IBUPROFEN 600 MG TABLET PO (19:52)
[2024-06-17 19:54] VITALS: TEMP 38.4
[2024-06-17 20:22] VITALS: TEMP 38.4
[2024-06-17 20:30] VITALS: BP 130/82; PULSE 98; RESP 17; TEMP 38.2; O2SAT 100
== END 2024-06-17 20:30 | disposition home or self-care (01) ==
PROVIDERS: Emergency Provider Emergency Medicine
DX: J10.1 Influenza due to other identified influenza virus with other respiratory manifestations (principal); F17.210 Nicotine dependence, cigarettes, uncomplicated; Z20.822 Contact with and (suspected) exposure to COVID-19
CPT/HCPCS: 87637; 87651; 99283; A9270